=== PATIENT | female | born 1980 | race American Indian/Alaskan Native ===

== ENCOUNTER 2018-03-10 07:30 | Emergency (ER) | payer MEDICAID ==
[2018-03-10] MEDS ORDERED: PROVENTIL IH ONE (07:53)
[2018-03-10] MEDS ORDERED: SOLU-Medrol IM ONE (09:10)
[2018-03-10] MEDS ORDERED: DUONEB *Not for PRN Use IH ONE (09:10)
[2018-03-10] MEDS ORDERED: CATAPRES PO ONE (09:10)
--- NOTE | 2018-03-10 09:11 | Emergency Department Report ---
ED Asthma HPI - General Chief Complaint: Adult Asthma Stated Complaint: ASTHMA Time Seen by Provider: 03/10/18 09:01 Source: patient Mode of arrival: Ambulatory Limitations: No Limitations - History of Present Illness MD Complaint: wheezing -: Gradual, hour(s) Asthma History: childhood onset, history of prior ED visit Severity: mild Context: ran out of meds, allergen exposure (MOLD) Associated Symptoms: denies: productive cough, dry cough, fever, chest pain, hemoptysis, leg edema, syncope Treatments Prior to Arrival: other (OUT OF MEDS) - Related Data Current Asthma Therapy: inhaled bronchodilator, inhaled steroid Previous Rx's Medication Instructions Recorded Last Taken Type ALBUTEROL NEB's [Proventil 0.083% 2.5 mg IH TID PRN #1 box 03/10/18 Unknown Rx NEBS] Fluticasone/Salmeterol [Advair 1 each IH DAILY #1 blst.w.dev 03/10/18 Unknown Rx 250-50 Diskus] predniSONE [Deltasone] 50 mg PO QDAY #5 tab 03/10/18 Unknown Rx Allergies Allergy/AdvReac Type Severity Reaction Status Date / Time No Known Allergies Allergy Unverified 03/10/18 07:53 ED Review of Systems ROS: Stated complaint: ASTHMA Other details as noted in HPI Comment: All other systems reviewed and negative Constitutional: denies: chills, fever Eyes: denies: eye pain ENT: denies: ear pain, throat pain Respiratory: wheezing. denies: cough, orthopnea, shortness of breath, SOB with exertion, SOB at rest, stridor Cardiovascular: denies: chest pain, palpitations, dyspnea on exertion, orthopnea , edema, syncope, paroxysmal nocturnal dyspnea Endocrine: denies: excessive sweating, flushing, intolerance to cold, intolerance to heat, increased hunger, increased thirst Gastrointestinal: denies: abdominal pain, nausea, vomiting Genitourinary: denies: urgency, dysuria Musculoskeletal: denies: back pain Skin: denies: rash, lesions Neurological: denies: headache, weakness Psychiatric: denies: anxiety, depression Hematological/Lymphatic: denies: easy bleeding ED Past Medical Hx - Past Medical History Previous Medical History?: Yes Hx Asthma: Yes - Surgical History Past Surgical History?: No - Family History Family history: no significant - Social History Smoking Status: Never Smoker Substance Use Type: None - Medications Home Medications: Home Medications Medication Instructions Recorded Confirmed Last Taken Type ALBUTEROL NEB's [Proventil 0.083% 2.5 mg IH TID PRN #1 box 03/10/18 Unknown Rx NEBS] Fluticasone/Salmeterol [Advair 1 each IH DAILY #1 blst.w.dev 03/10/18 Unknown Rx 250-50 Diskus] predniSONE [Deltasone] 50 mg PO QDAY #5 tab 03/10/18 Unknown Rx ED Physical Exam - General Limitations: No Limitations General appearance: alert - Head Head exam: Present: normocephalic - Eye Eye exam: Present: PERRL - ENT ENT exam: Present: mucous membranes moist - Neck Neck exam: Absent: tenderness, meningismus - Respiratory Respiratory exam: Present: wheezes (BILATERAL INSP). Absent: respiratory distress, rales, rhonchi, stridor, chest wall tenderness, accessory muscle use, decreased breath sounds, prolonged expiratory - Cardiovascular Cardiovascular Exam: Present: regular rate, normal heart sounds. Absent: normal rhythm, bradycardia, tachycardia, irregular rhythm, S3, S4 - GI/Abdominal GI/Abdominal exam: Present: soft, normal bowel sounds. Absent: distended, tenderness, guarding, rebound, rigid, diminished bowel sounds - Rectal Rectal exam: Present: deferred - Extremities Exam Extremities exam: Present: normal inspection, full ROM, normal capillary refill. Absent: tenderness, pedal edema, joint swelling - Back Exam Back exam: Present: normal inspection, full ROM. Absent: tenderness, CVA tenderness (R), CVA tenderness (L), muscle spasm - Neurological Exam Neurological exam: Present: alert, oriented X3, CN II-XII intact, normal gait - Psychiatric Psychiatric exam: Present: normal affect, normal mood. Absent: anxious - Skin Skin exam: Present: warm, dry, intact, normal color. Absent: rash, cyanosis ED Course Vital Signs 03/10/18 03/10/18 03/10/18 07:50 08:22 08:36 Temperature 98.6 F Pulse Rate 93 H Pulse Rate [ 87 89 Bilateral Throughout] Respiratory 20 Rate Respiratory 19 20 Rate [Bilateral Throughout] Blood Pressure 179/117 Blood Pressure [Right] O2 Sat by Pulse 99 Oximetry 03/10/18 03/10/18 03/10/18 09:26 09:27 09:30 Temperature Pulse Rate 75 75 Pulse Rate [ 79 Bilateral Throughout] Respiratory 18 Rate Respiratory 17 Rate [Bilateral Throughout] Blood Pressure 172/94 Blood Pressure 172/94 [Right] O2 Sat by Pulse 99 Oximetry 03/10/18 09:36 Temperature Pulse Rate Pulse Rate [ 80 Bilateral Throughout] Respiratory Rate Respiratory 18 Rate [Bilateral Throughout] Blood Pressure Blood Pressure [Right] O2 Sat by Pulse Oximetry - Reevaluation(s) Reevaluation #1: 03/10/18 TO ER W WHEEZING OUT OF HER MEDS RECENT MOLD EXPOSURE HAS TRIGGERED HER ASTHMA NO FEVER NO PURULENT SPUTUM INCIDENTAL FINDING OF INC BP - THIS IS NEW FOR THE PT SHE HAS NEVER BEEN TOLD IT IS HIGH. THE BP DID NOT COME DOWN P RT TX THEREFORE PT GIVEN CLONIDINE PO W IMPROVEMENT. NO CP NO SOB NO EDEMA/JVD INSTRUCTED PT SHE WOULD HAVE TO MONITOR HER BP AND SEE PCP TO MAKE SURE SHE DOES NOT NEED MEDICATED FOR IT. DUONEB W IMPROVED WHEEZING AMBULATORY TAKING PO HR 90 POST RT DC HOME W DC POC AND FOLLOW UP INSTRUCTIONS. BP 160/80 ON DC. ED Medical Decision Making - Medical Decision Making RT TX WITH IMPROVEMENT NO FEVER ALLERGEN EXPOSURE NO PURULENT SPUTUM RAN OUT OF MEDS. - Differential Diagnosis ASTHMA AE WITH OR WITHOUT INFECTIOUS TRIGGER Critical care attestation.: If time is entered above; I have spent that time in minutes in the direct care of this critically ill patient, excluding procedure time. ED Disposition Clinical Impression: Asthma, acute, Elevated blood pressure reading, Medication refill Disposition: DC-01 TO HOME OR SELFCARE Is pt being admited?: No Does the pt Need Aspirin: No Condition: Stable Instructions: Asthma (ED) Additional Instructions: follow blood pressure let pcp know it was high you may need medication low salt diet hydrate well with water Prescriptions: ALBUTEROL NEB's [Proventil 0.083% NEBS] 2.5 mg IH TID PRN #1 box PRN Reason: Wheezing Fluticasone/Salmeterol [Advair 250-50 Diskus] 1 each IH DAILY #1 blst.w.dev predniSONE [Deltasone] 50 mg PO QDAY #5 tab Referrals: PRIMARY CARE, [Primary Care Provider] - 3-5 Days Time of Disposition: 09:23
[2018-03-10 09:27] VITALS: BP 172/94
== END 2018-03-10 09:48 | disposition home or self-care (01) ==
LOC: ED 07:30
DX: J45.998 Other asthma (principal); R03.0 Elevated blood-pressure reading, without diagnosis of hypertension; Z76.0 Encounter for issue of repeat prescription
CPT/HCPCS: 94640; 96372; 99283; J2930

== ENCOUNTER 2018-06-19 19:59 | Emergency (ER) | payer MEDICAID, OTHER ==
[2018-06-19 20:29] VITALS: BP 164/99
[2018-06-19] MEDS ORDERED: DUONEB *Not for PRN Use IH ONE ×2 (20:51→23:43)
[2018-06-19] MEDS ORDERED: DECADRON ONE (20:51)
[2018-06-19] MEDS ORDERED: DECADRON 20 MG in NACL 0.9% 50 ML IV ONE (20:51)
[2018-06-19] MEDS ORDERED: DECADRON IM ONE (21:27)
--- NOTE | 2018-06-19 23:45 | Emergency Department Report ---
ED Asthma HPI - General Chief Complaint: Adult Asthma Stated Complaint: SHORTNESS OF BREATH,CHEST PAIN Source: patient Mode of arrival: Ambulatory Limitations: No Limitations - History of Present Illness Initial Comments: This is a 37-year-old -[place] female who presents with wheezing, shortness of breath for 2 days. Patient states she ran out of Advair discus 2 weeks ago. Over the past 2 days she has increased the use of nebulizer treatment every 1-2 hours. There is cough, shortness of breath, and wheezing. The patient is 13 weeks . She denies chest pain, fever, cough, myalgia, nausea or vomiting. MD Complaint: shortness of breath, wheezing Onset/Timin -: days(s) Asthma History: childhood onset Severity: mild Context: ran out of meds Associated Symptoms: none Treatments Prior to Arrival: inhaled bronchodilator - Related Data Current Asthma Therapy: inhaled bronchodilator Previous Rx's Medication Instructions Recorded Last Taken Type ALBUTEROL NEB's [Proventil 0.083% 2.5 mg IH TID PRN #1 box 03/10/18 Unknown Rx NEBS] Fluticasone/Salmeterol [Advair 1 each IH DAILY #1 blst.w.dev 03/10/18 Unknown Rx 250-50 Diskus] predniSONE [Deltasone] 50 mg PO QDAY #5 tab 03/10/18 Unknown Rx ALBUTEROL Inhaler(NF) [VENTOLIN 1 puff IH Q4-6H #1 inha 06/20/18 Unknown Rx Inhaler(NF)] Fluticasone/Salmeterol [Advair 1 puff IH BID #1 disk.w.dev 06/20/18 Unknown Rx Diskus 250-50 mcg] predniSONE [Deltasone] 40 mg PO QDAY #10 tab 06/20/18 Unknown Rx Allergies Allergy/AdvReac Type Severity Reaction Status Date / Time No Known Allergies Allergy Unverified 03/10/18 07:53 ED Review of Systems ROS: Stated complaint: SHORTNESS OF BREATH,CHEST PAIN Other details as noted in HPI Constitutional: denies: chills, fever ENT: denies: ear pain, throat pain Respiratory: shortness of breath, SOB with exertion, wheezing. denies: cough Cardiovascular: denies: chest pain, palpitations Gastrointestinal: denies: abdominal pain, nausea, diarrhea Musculoskeletal: denies: myalgia Neurological: denies: headache, weakness, paresthesias Psychiatric: denies: anxiety, depression ED Past Medical Hx - Past Medical History Hx Asthma: Yes - Social History Smoking Status: Never Smoker Substance Use Type: None - Medications Home Medications: Home Medications Medication Instructions Recorded Confirmed Last Taken Type ALBUTEROL NEB's [Proventil 0.083% 2.5 mg IH TID PRN #1 box 03/10/18 Unknown Rx NEBS] Fluticasone/Salmeterol [Advair 1 each IH DAILY #1 blst.w.dev 03/10/18 Unknown Rx 250-50 Diskus] predniSONE [Deltasone] 50 mg PO QDAY #5 tab 03/10/18 Unknown Rx ALBUTEROL Inhaler(NF) [VENTOLIN 1 puff IH Q4-6H #1 inha 06/20/18 Unknown Rx Inhaler(NF)] Fluticasone/Salmeterol [Advair 1 puff IH BID #1 disk.w.dev 06/20/18 Unknown Rx Diskus 250-50 mcg] predniSONE [Deltasone] 40 mg PO QDAY #10 tab 06/20/18 Unknown Rx ED Physical Exam - General Limitations: No Limitations General appearance: alert, in no apparent distress, obese - Respiratory Respiratory exam: Present: wheezes. Absent: rales, rhonchi, stridor, chest wall tenderness, accessory muscle use - Cardiovascular Cardiovascular Exam: Present: regular rate, normal rhythm. Absent: systolic murmur, diastolic murmur, rubs, gallop - GI/Abdominal GI/Abdominal exam: Present: soft, normal bowel sounds - Neurological Exam Neurological exam: Present: alert, oriented X3 - Psychiatric Psychiatric exam: Present: normal affect, normal mood - Skin Skin exam: Present: warm, dry, intact, normal color. Absent: rash ED Course Vital Signs 06/19/18 06/20/18 20:15 01:15 Temperature 98.0 F Pulse Rate 90 92 H Respiratory 20 15 Rate Blood Pressure 164/99 O2 Sat by Pulse 96 98 Oximetry ED Medical Decision Making - EKG Data -: No EKG Interpreted by Me (EKG interpreted by sending) EKG shows normal: sinus rhythm Rate: normal - Medical Decision Making 37 y.o. female that presents with SOB, cough, and wheezing for 2 days. History of Asthma. She ran out of albuterol inhaler 2 weeks ago. Patient examined by me and in slight distress. Vitals stable. EKG obtained and dictated by attending. Given duoneb treatment twice and dexamethasone 10 mg IM once in ER. Wheezes resolved and sat 98% on room air. Asthma exacerbation, Start albuterol, advair diskus, and prednisone taper. Discharged home stable. Follow-up with primary care provider and [facility]. Critical care attestation.: If time is entered above; I have spent that time in minutes in the direct care of this critically ill patient, excluding procedure time. ED Disposition Clinical Impression: Cough, Shortness of breath Asthma exacerbation Qualifiers: Asthma severity: moderate Asthma persistence: unspecified Qualified Code(s): J45.901 - Unspecified asthma with (acute) exacerbation Disposition: TO HOME OR SELFCARE Is pt being admited?: No Does the pt Need Aspirin: No Condition: Stable Instructions: Asthma (ED) Additional Instructions: It is important to use inhaler or have active albuterol inhaler and avoiding asthma triggers. Complete full course of prednisone steroids as prescribed. Follow up with Primary Care Provider in 24-72 hours. Prescriptions: ALBUTEROL Inhaler(NF) [VENTOLIN Inhaler(NF)] 1 puff IH Q4-6H #1 inha Fluticasone/Salmeterol [Advair Diskus 250-50 mcg] 1 puff IH BID #1 disk.w.dev predniSONE [Deltasone] 40 mg PO QDAY #10 tab Referrals: [facility] [Outside] - 3-5 Days [facility] [Provider Group] - 3-5 Days Forms: Work/School Release Form(ED) Time of Disposition: 00:52
== END 2018-06-20 01:15 | disposition home or self-care (01) ==
LOC: ED 19:59
DX: O99.511 Diseases of the respiratory system complicating pregnancy, first trimester (principal); J45.901 Unspecified asthma with (acute) exacerbation; Z3A.13 13 weeks gestation of pregnancy
CPT/HCPCS: 93005; 93010; 94640; 96372; 99283; J1100